=== PATIENT | male | born 1970 | race Caucasian/White ===

== ENCOUNTER 2022-07-10 09:13 | Emergency (ER) | payer BC, MEDICAID, SELFPAY ==
[2022-07-10 09:15] VITALS: BP 190/105; PULSE 84; RESP 18; TEMP 36.4; O2SAT 100; BMI 29.5
--- NOTE | 2022-07-10 09:34 | USCV_ITS ---
NicoletteRanjan munguia Age: 52 Gender: M : 1970 Exam Date: 07/10/2022 09:43 Ordering Phys: Armando Singh DO Technologist: [place] [facility] [place] SWELLING HISTORY: Lower extremity swelling. PROCEDURES: Venous duplex imaging was performed in only the left lower extremity. On the left side, the common femoral, superficial femoral, profunda femoral, popliteal, posterior tibial, greater saphenous veins, and the peroneal trunk were identified and interrogated in the standard fashion. In addition, the posterior tibial and peroneal trunk were evaluated. FINDINGS: DVT FROM CFV TO FALGUNI V. THROMBUS IN CFV IS MOVING IN REAL TIME CONCLUSIONS LLE occlusive thromus left femoral, common femoral, popliteal and peroneal veins. GSV thrombus above the knee. Mobile thrombus seen in the CFV. Notified Dr. Singh at 1255 and at time of study 07/10/22 Ashutosh Dumont MD (Electronically Signed) Final Date: 10 July 2022 12:58 S
--- NOTE | 2022-07-10 09:34 | ED_ITS ---
HPI - Extremity Problem General: Chief complaint: Extremity Problem,Nontraumatic Stated complaint: possible blood clot left leg Time Seen by Provider: 07/10/22 09:15 Source: patient Mode of arrival: ambulatory History of Present Illness: 52-year-old male present emergency room with significant mount of swelling of the last 4 days of the left lower leg begin the ankle and progressively became more proximal. Patient has a history of DVTs. Previous work-up he was told he had some sort of deficiency (? Protein S or C?) And he was started on Coumadin. He has been off of his Coumadin because he lost his insurance and not been able to afford it. He denies any chest pain or shortness of breath. Has no known history of coronary artery disease. No lacerations bumps abrasions or trauma to the left leg recently. MD Complaint: extremity pain Onset (ago): minute(s) Pain Consistency: constant Location: left and lower extremity Quality: aching Radiation: proximal Relieving factors: nothing Exacerbating factors: nothing Associated symptoms: Deny arthralgias, chest pain, fever(s), myalgias, rash or short of breath Review of Systems Const: Denies: fever(s), chills, fatigue or malaise ENMT: Denies: throat pain, ear or mastoid pain, nasal discharge or nasal congestion Card: Denies: chest pain Resp: Denies: dyspnea, productive cough or non-productive cough GI: Denies: abdominal pain, nausea, vomiting, hematemesis, coffee ground emesis, diarrhea, constipation, bloating, hematochezia or melena : Denies: flank pain, dysuria, urinary frequency or urinary urgency Musc: Reports: extremity pain and extremity swelling Skin/Breast: Denies: rash PFSH ED PFSH: Medical History COPD (chronic obstructive pulmonary disease) Hx of blood clots Psoriatic arthritis Surgical History Hx of shoulder surgery Family History Denies family history of Clotting disorder Social History Smoking and tobacco status: current every day smoker Alcohol intake: never Physical Exam Const: COMMON NORMALS: no acute distress GENERAL APPEARANCE: cooperative and comfortable ORIENTATION/CONSCIOUSNESS: Yes awake, Yes oriented to person, Yes oriented to place and Yes oriented to time HENMT: COMMON NORMALS: normocephalic, atraumatic and hearing grossly normal bilaterally HEAD & SCALP: normocephalic and atraumatic Resp: COMMON NORMALS: normal respiratory effort, No retractions, No use of accessory muscles and clear to auscultation bilaterally AUSCULTATION: clear to auscultation bilaterally Cardio: COMMON NORMALS: regular rate, regular rhythm and No murmurs present (Cardio) RATE: regular rate RHYTHM: regular rhythm GI: COMMON NORMALS: Soft to palpation and No hepatosplenomegaly present AUSCULTATION: Yes normoactive bowel sounds PALPATION: Yes Soft to palpation, No Tenderness to palpation present (GI), No Guarding due to palpation present (GI) and Yes No hepatosplenomegaly present Extremity: COMMON NORMALS: normal to inspection, capillary refill normal, no clubbing, cyanosis or edema, no calf tenderness and no pedal edema Neuro: SENSORIUM/ORIENTATION: Yes oriented to person, Yes oriented to place and Yes oriented to time Skin: COMMON NORMALS: no rashes or lesions noted GENERAL SKIN EXAM: no rashes or lesions noted Course Vital Signs: Vital signs: Vital Signs Temperature 97.6 F 07/10/22 09:15 Pulse Rate 79 07/10/22 10:58 Respiratory Rate 18 07/10/22 10:58 Blood Pressure 173/101 07/10/22 10:58 Pulse Oximetry 99 07/10/22 10:58 Oxygen Delivery Me thod 07/10/22 09:15 MDM - Extremity (Nontraumatic) Medical Decision Making Labs and imaging reviewed. Venous duplex shows significant DVT. Patient wants to be treated as an outpatient. I am little bit concerned because the extent of DVT there actually able to visualize a portion of the proximal clot in the femoral vein has a loose aspect to but if he has any chest pain or shortness of breath he needs to return immediately was given Lovenox here started on Eliquis reviewed with him carefully how to take the Eliquis follow-up with his primary care doctor he needs to maintain long-term anticoagulation. Blood pressure was elevated patient states actually better than what it normally is encouraged to follow-up with primary care doctor to reevaluate blood pressure as an outpatient for consideration of initiation of antihypertensive is persistently elevated. Medical Records I reviewed the patient's medical records. Lab Data I reviewed the patient's lab results. 07/10/22 09:47 07/10/22 09:47 Laboratory Results WBC 7.7 10^3/uL (4.0-10.0) 07/10/22 09:47 RBC 5.37 10^6/uL (4.1-5.3) H 07/10/22 09:47 Hgb 15.4 g/dL (11.7-16.6) 07/10/22 09:47 Hct 45.7 % (42.0-52.0) 07/10/22 09:47 MCV 85.1 fl (80-94) 07/10/22 09:47 MCH 28.7 pg (28.0-34.0) 07/10/22 09:47 MCHC 33.7 g/dL (30.0-36.0) 07/10/22 09:47 RDW 12.1 % (12.1-15.1) 07/10/22 09:47 Plt Count 220 10^3/cmm (130-400) 07/10/22 09:47 MPV 9.4 fL (7.4-10.4) 07/10/22 09:47 Neut % (Auto) 57.2 % 07/10/22 09:47 Lymph % (Auto) 26.0 % 07/10/22 09:47 [place] % (Auto) 10.4 % 07/10/22 09:47 Eos % (Auto) 5.4 % 07/10/22 09:47 Baso % (Auto) 0.5 % 07/10/22 09:47 Neut # (Auto) 4.41 10^3/uL (1.8-7.7) 07/10/22 09:47 Lymph # (Auto) 2.0 10^3/uL (0.8-4.8) 07/10/22 09:47 [place] # (Auto) 0.8 10^3/uL (0.2-0.9) 07/10/22 09:47 Eos # (Auto) 0.4 10^3/uL (0.0-0.8) 07/10/22 09:47 Baso # (Auto) 0.0 10^3/uL (0.0-0.1) 07/10/22 09:47 Nucleated RBC % (auto) 0 % 07/10/22 09:47 Nucleated RBCs # 0.0 /100WBC 07/10/22 09:47 PT 13.20 SECONDS (12.1-14.9) 07/10/22 09:47 INR 0.97 (0.8-1.2) 07/10/22 09:47 Sodium 137 mmol/L (136-145) 07/10/22 09:47 Potassium 3.7 mmol/L (3.5-5.1) 07/10/22 09:47 Chloride 101 mmol/L (98-107) 07/10/22 09:47 Carbon Dioxide 25 mmol/L (22-29) 07/10/22 09:47 Anion Gap 14.7 (5-19) 07/10/22 09:47 BUN 8 mg/dL (6-20) 07/10/22 09:47 Creatinine 1.1 mg/dL (0.7-1.2) 07/10/22 09:47 GFR Calculation 70.6 mL/min (90-130) L 07/10/22 09:47 Glucose 148 mg/dL (65-115) H 07/10/22 09:47 Calculated Osmolality 285 mOsm/kg (285-295) 07/10/22 09:47 Calcium 8.9 mg/dL (8.5-10.5) 07/10/22 09:47 Discharge Plan Discharge Patient Disposition: Home Clinical Impression: Deep vein thrombosis of lower extremity Condition: Stable Prescriptions: New Eliquis DVT-PE Treat 30D Start 5 mg (74 tabs) tablets,dose pack See Rx Instructions .ROUTE .COMPLEX Qty: 74 0RF Rx Instructions: orally per package directions No Action albuterol sulfate 90 mcg/actuation HFA aerosol inhaler 2 inh inhalation Q4H Qty: 8.5 3RF Discharge Orders: Discharge ED (Routine); Ordered 07/10/22 Ordered By: Armando Singh Referrals: Gilmar Alejandra, [Primary Care Provider] - Discharge Diet: Usual diet Discharge Activity: Limit activity as instructed Patient Instructions: Deep Vein Thrombosis (ED), Opioid Safety, Pain Management Activity Restrictions/Additional Instructions: You were seen today for leg swelling due to her recurrent DVT (blood clot) in the left lower leg. DVT is quite extensive and is at significant risk for progression to a pulmonary embolism. If you have development of chest pain or sudden shortness of breath return to the emergency room immediately. Start the Eliquis immediately after leaving the emergency room 10 mg twice a day for 7 da ys then 5 mg twice a day follow-up with your primary care doctor to continue on Eliquis or some other appropriate anticoagulant for prevention of further blood clots. Because of your medical history this is especially important. Coding Level of Care Code ED Flight Operations Dispatch Clerk for Marianela Fwd Exam Detailed
--- NOTE | 2022-07-10 09:51 | PC.NURSE ---
pt c/o left leg swelling and tenderness for last 3 days. reports hx DVT in right leg. Had to stop blood thinners around a year ago due to out of insurance. left leg noted to be swollen, red, and warm to touch. US at bedside for doplar. Pt denies dyspnea or chest pain. pt speech clear, speaking in complete sentences without difficulty. lung sounds clear bilat.
[2022-07-10 09:56] LABS: Basophils % 0.5 %; Eosinophils # 0.4 10^3/uL (0.0-0.8); Eosinophils % 5.4 %; Hematocrit 45.7 % (42.0-52.0); Hemoglobin 15.4 g/dL (11.7-16.6); Mean Corpuscular HGB Conc 33.7 g/dL (30.0-36.0); Mean Corpuscular Hemoglobin 28.7 pg (28.0-34.0); Mean Corpuscular Volume 85.1 fl (80-94); Mean Platelet Volume 9.4 fL (7.4-10.4); Monocytes # 0.8 10^3/uL (0.2-0.9); Monocytes % 10.4 %; Neutrophils # 4.41 10^3/uL (1.8-7.7); Neutrophils % 57.2 %; Nucleated Red Blood Cells % 0 %; Platelet Count 220 10^3/cmm (130-400); Red Blood Count 5.37 10^6/uL (4.1-5.3); Red Cell Distribution Width 12.1 % (12.1-15.1); White Blood Count 7.7 10^3/uL (4.0-10.0)
[2022-07-10] MEDS: enoxaparin 100 mg/mL Syringe SUBCUT (10:02)
[2022-07-10 10:15] LABS: Anion Gap 14.7 (5-19); Blood Urea Nitrogen 8 mg/dL (6-20); Calcium 8.9 mg/dL (8.5-10.5); Carbon Dioxide 25 mmol/L (22-29); Chloride 101 mmol/L (98-107); Glomerular Filtration Rate 70.6 mL/min (90-130); Glucose 148 mg/dL (65-115); Osmolality Calculated 285 mOsm/kg (285-295); Potassium 3.7 mmol/L (3.5-5.1); Sodium 137 mmol/L (136-145)
--- NOTE | 2022-07-10 10:18 | PC.PHAR ---
pt states he lost his insurance and hasnt been on his medications states just got insurance back and not restarted taking
[2022-07-10 10:23] VITALS: BP 169/95
[2022-07-10] MEDS: HYDROcodone-acetaminophen 5-325 mg Tablet 2 TAB PO (10:24)
[2022-07-10 10:58] VITALS: BP 173/101; PULSE 79; RESP 18; O2SAT 99
[2022-07-10 11:09] LABS: INR 0.97 (0.8-1.2)
== END 2022-07-10 11:00 | disposition home or self-care (01) ==
PROVIDERS: Emergency Provider Family Medicine; PCP Family Medicine
DX: I82.412 Acute embolism and thrombosis of left femoral vein (principal); J44.9 Chronic obstructive pulmonary disease, unspecified; F17.210 Nicotine dependence, cigarettes, uncomplicated
CPT/HCPCS: 80048; 85025; 85610; 93971; 96372; 99284; J1650

== ENCOUNTER 2022-08-09 09:54 | Emergency (ER) | payer BC, MEDICAID, SELFPAY ==
[2022-08-09] VITALS (12 sets, daily range): BP systolic 147–215; BP diastolic 77–113; PULSE 71–94; RESP 14–23; TEMP 36.3; O2SAT 98–100; BMI 29.5
--- NOTE | 2022-08-09 10:15 | ECG_ITS ---
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 Measurements Intervals Home Rate: 80 P: 36 LA: 136 QRS: 43 QRSD: 85 T: 71 QT: 354 QTc: 410 Interpretive Statements SINUS RHYTHM WITH OCCASIONAL VENTRICULAR PREMATURE COMPLEXES NONSPECIFIC T-WAVE ABNORMALITY No previous ECG available for comparison Electronically Signed On 08-09-2022 23:26:54 FINE ARTS INSTRUCTOR by Chi Rizo M.D. [id number]
--- NOTE | 2022-08-09 10:15 | XR_ITS ---
WS: [id number] Portable AP upright chest, 08/09/2022 Clinical Data: dyspnea/cough Comparison: PA and lateral chest, 08/26/2014. Findings: No nodules, masses or effusions are seen. The heart is normal. The pulmonary vascularity is not increased. No pneumonia or pneumothorax is seen. There are calcified granulomas in both milan in the right lower lobe. The diaphragms are flattened. XR/XR chest 1V portable [id number] Impression: Hyperinflation and old granulomatous disease.
[2022-08-09 10:26] LABS: Basophils % 0.6 %; Eosinophils # 0.2 10^3/uL (0.0-0.8); Eosinophils % 2.5 %; Hematocrit 47.6 % (42.0-52.0); Hemoglobin 16.1 g/dL (11.7-16.6); Lymphocytes # 2.4 10^3/uL (0.8-4.8); Lymphocytes % 33.1 %; Mean Corpuscular HGB Conc 33.8 g/dL (30.0-36.0); Mean Corpuscular Hemoglobin 28.8 pg (28.0-34.0); Mean Platelet Volume 9.7 fL (7.4-10.4); Monocytes # 0.5 10^3/uL (0.2-0.9); Monocytes % 7.4 %; Neutrophils # 4.04 10^3/uL (1.8-7.7); Nucleated Red Blood Cells % 0 %; Platelet Count 258 10^3/cmm (130-400); Red Cell Distribution Width 12.5 % (12.1-15.1); White Blood Count 7.2 10^3/uL (4.0-10.0)
[2022-08-09] MEDS: labetalol 5 mg/mL SDV 20mL 10 MG IVP (10:32)
[2022-08-09] MEDS: hyDRALAzine 20 mg/mL INJ 1 mL IVP (10:32)
[2022-08-09 10:44] LABS: Alanine Aminotransferase 18 U/L (0-41); Albumin Level 4.4 g/dL (3.5-5.2); Alkaline Phosphatase 133 U/L (40-130); Anion Gap 15.5 (5-19); Aspartate Amino Transferase 12 U/L (0-40); Blood Urea Nitrogen 10 mg/dL (6-20); Calcium 9.2 mg/dL (8.5-10.5); Carbon Dioxide 26 mmol/L (22-29); Chloride 99 mmol/L (98-107); Globulin 2.6 g/dL (1.3-4.6); Glomerular Filtration Rate 70.6 mL/min (90-130); Glucose 153 mg/dL (65-115); Osmolality Calculated 286 mOsm/kg (285-295); Potassium 3.5 mmol/L (3.5-5.1); Sodium 137 mmol/L (136-145); Total Bilirubin 0.3 mg/dL (0.15-1.2)
--- NOTE | 2022-08-09 10:56 | W.ED.GENADLT ---
HPI - General Adult General: Chief complaint: General Medical Stated complaint: Left Leg swelling Time Seen by Provider: 08/09/22 10:07 Source: patient Mode of arrival: ambulatory History of Present Illness: 52-year-old male with a known history extensive DVT of his left leg he was seen in the ER here 1 month ago. Previous ultrasound reviewed. Follow-up today is to establish with a primary care doctor he needs a refill of his Eliquis he is swelling is down his pain is little bit better primary care was concerned about his elevated blood pressure and possibility of migration of his DVT and directed him to the emergency room for evaluation. Patient has no chest pain no shortness of breath Onset (ago): month(s) (1) Location: left and lower extremity Severity: moderate Quality: aching Pain Consistency: constant Relieving factors: none Exacerbating factors: none Associated symptoms: Deny chest pain, confusion, cough, diaphoresis, decreased appetite, dyspnea, fevers/chills, headache(s), malaise, nausea, rash, palpitations, seizures, short of breath, syncope, vomiting or weakness Treatments prior to arrival: none Review of Systems Const: Denies: fever(s), chills, malaise or diaphoresis ENMT: Denies: throat pain, ear or mastoid pain, nasal discharge or nasal congestion Card: Denies: chest pain, palpitations or syncope Resp: Denies: dyspnea GI: Denies: abdominal pain, nausea or vomiting : Denies: flank pain, dysuria, urinary frequency or urinary urgency Skin/Breast: Denies: rash Neuro: Denies: headache(s) or confusion PFSH ED PFSH: Medical History (Updated 08/09/22 @ 18:10 by Michele Gleason MD) COPD (chronic obstructive pulmonary disease) Hx of blood clots Psoriatic arthritis Surgical History (Updated 08/09/22 @ 08:38 by Michele Gleason MD) History of back surgery Hx of shoulder surgery Family History Other Lung disease Denies family history of Diabetes CAD (coronary artery disease) Clotting disorder Dementia Hyperlipidemia Psychiatric illness Chronic kidney disease (CKD) Anesthesia complication Bleeding disorder Cancer Hypertension Stroke Social History (Updated 08/09/22 @ 08:34 by Michele Gleason MD) Smoking and tobacco status: current every day smoker cigarettes [ Other cigarette details: current 1/2 PPD, Hx of 50PY] Alcohol intake: never Lives independently: Yes Marital status: Number of children: 8 service: No Current occupational status: disabled Current gender identity: Male Madeline/Pentecostalism: None Special madeline needs: No Agree to transfusion: Yes Physical Exam Const: COMMON NORMALS: no acute distress GENERAL APPEARANCE: cooperative and comfortable ORIENTATION/CONSCIOUSNESS: Yes awake, Yes oriented to person, Yes oriented to place and Yes oriented to time HENMT: COMMON NORMALS: normocephalic and atraumatic HEAD & SCALP: normocephalic and atraumatic Resp: COMMON NORMALS: normal respiratory effort, No retractions, No use of accessory muscles and clear to auscultation bilaterally AUSCULTATION: clear to auscultation bilaterally Cardio: COMMON NORMALS: regular rate, regular rhythm and No murmurs present (Cardio) RATE: regular rate RHYTHM: regular rhythm GI: COMMON NORMALS: Soft to palpation and No hepatosplenomegaly present AUSCULTATION: Yes normoactive bowel sounds PALPATION: Yes Soft to palpation, No Tenderness to palpation present (GI), No Guarding due to palpation present (GI) and Yes No hepatosplenomegaly present Extremity: NARRATIVE EXTREMITY EXAM: Moderate swelling left leg tender to palpation especially medial thigh and the knee Positive Homans no sign of skin breakdown or ulceration Neuro: SENSORIUM/ORIENTATION: Yes oriented to person, Yes oriented to place and Yes oriented to time Skin: COMMON NORMALS: no rashes or lesions noted GENERAL SKIN EXAM: no rashes or lesions noted Course Vital Signs: Vital signs: Vital Signs Temperature 97.4 F L 08/09/22 10:06 Pulse Rate 94 08/09/22 15:00 Respiratory Rate 14 08/09/22 15:00 Blood Pressure 161/93 08/09/22 15:00 Pulse Oximetry 100 08/09/22 15:00 Oxygen Delivery Me thod 08/09/22 10:11 [facility] - General Adult Medical Decision Making Patient had extensive DVT in his initial ultrasound. Swelling and discomfort have lessened slightly his blood pressure here when he first developed arrived was elevated but has moderated since arrival he is currently on losartan and Lasix. Ultrasound shows actually regression of the clot. No clinical evidence of PE. Continue the Eliquis for now no change in his blood pressure medications he may need some adjustment for time but will defer to outpatient clinic. According to his doctor's notes he has a follow-up appointment in 3 days. Medical Records I reviewed the patient's medical records. Lab Data I reviewed the patient's lab results. 08/09/22 10:20 08/09/22 10:20 Radiology Impressions Chest X-Ray 08/09/22 10:15 Impression: Hyperinflation and old granulomatous disease. Laboratory Results WBC 7.2 10^3/uL (4.0-10.0) 08/09/22 10:20 RBC 5.60 10^6/uL (4.1-5.3) H 08/09/22 10:20 Hgb 16.1 g/dL (11.7-16.6) 08/09/22 10:20 Hct 47.6 % (42.0-52.0) 08/09/22 10:20 MCV 85.0 fl (80-94) 08/09/22 10:20 MCH 28.8 pg (28.0-34.0) 08/09/22 10:20 MCHC 33.8 g/dL (30.0-36.0) 08/09/22 10:20 RDW 12.5 % (12.1-15.1) 08/09/22 10:20 Plt Count 258 10^3/cmm (130-400) 08/09/22 10:20 MPV 9.7 fL (7.4-10.4) 08/09/22 10:20 Neut % (Auto) 56.0 % 08/09/22 10:20 Lymph % (Auto) 33.1 % 08/09/22 10:20 [place] % (Auto) 7.4 % 08/09/22 10:20 Eos % (Auto) 2.5 % 08/09/22 10:20 Baso % (Auto) 0.6 % 08/09/22 10:20 Neut # (Auto) 4.04 10^3/uL (1.8-7.7) 08/09/22 10:20 Lymph # (Auto) 2.4 10^3/uL (0.8-4.8) 08/09/22 10:20 [place] # (Auto) 0.5 10^3/uL (0.2-0.9) 08/09/22 10:20 Eos # (Auto) 0.2 10^3/uL (0.0-0.8) 08/09/22 10:20 Baso # (Auto) 0.0 10^3/uL (0.0-0.1) 08/09/22 10:20 Nucleated RBC % (auto) 0 % 08/09/22 10:20 Nucleated RBCs # 0.0 /100WBC 08/09/22 10:20 Sodium 137 mmol/L (136-145) 08/09/22 10:20 Potassium 3.5 mmol/L (3.5-5.1) 08/09/22 10:20 Chloride 99 mmol/L (98-107) 08/09/22 10:20 Carbon Dioxide 26 mmol/L (22-29) 08/09/22 10:20 Anion Gap 15.5 (5-19) 08/09/22 10:20 BUN 10 mg/dL (6-20) 08/09/22 10:20 Creatinine 1.1 mg/dL (0.7-1.2) 08/09/22 10:20 GFR Calculation 70.6 mL/min (90-130) L 08/09/22 10:20 Glucose 153 mg/dL (65-115) H 08/09/22 10:20 Calculated Osmolality 286 mOsm/kg (285-295) 08/09/22 10:20 Calcium 9.2 mg/dL (8.5-10.5) 08/09/22 10:20 Total Bilirubin 0.3 mg/dL (0.15-1.2) 08/09/22 10:20 AST 12 U/L (0-40) 08/09/22 10:20 ALT 18 U/L (0-41) 08/09/22 10:20 Alkaline Phosphatase 133 U/L (40-130) H 08/09/22 10:20 Total Protein 7.0 g/dL (6.6-8.7) 08/09/22 10:20 Albumin 4.4 g/dL (3.5-5.2) 08/09/22 10:20 Globulin 2.6 g/dL (1.3-4.6) 08/09/22 10:20 Discharge Plan Discharge Patient Disposition: Home Clinical Impression: DVT (deep venous thrombosis) Condition: Stable Prescriptions: No Action fluticasone propion-salmeterol [Advair Diskus] 250-50 mcg/dose blister with device 1 inh inhalation BID Qty: 60 0RF atorvastatin 40 mg tablet 40 mg PO DAILY Qty: 90 1RF losartan 50 mg tablet 50 mg PO DAILY Qty: 30 0RF Eliquis 5 mg tablet 5 mg PO BID Qty: 180 3RF furosemide 40 mg tablet 40 mg PO QAM Qty: 10 0RF albuterol sulfate 90 mcg/actuation HFA aerosol inhaler 2 inh inhalation Q4H PRN (Reason: Shortness Of Breath Or Wheezing) Discharge Orders: Discharge ED (Routine); Ordered 08/09/22 Ordered By: Armando Singh Discharge Diet: Usual diet Discharge Activity: Resume usual activity Patient Instructions: Opioid Safety, Pain Management Activity Restrictions/Additional Instructions: You were seen today because of concern of the previous DVT. Ultrasound shows the clot has regressed some of slightly less dilation of the vessel. Recommend that you continue on the Eliquis. It is very likely that he will continue to have swelling and discomfort in the left leg for some time to come due to the extensiveness of the DVT. Coding Level of Care Code ED Prescription Benefit Specialist for Marianela Schneider
[2022-08-09] MEDS: apixaban 5 mg Tablet PO (11:29)
--- NOTE | 2022-08-09 12:40 | USCV_ITS ---
NicoletteRanjan munguia Age: 52 Gender: M : 1970 Exam Date: 08/09/2022 12:52 Ordering Phys: Armando Singh DO Technologist: JULIA Exam Location: [facility] – [place] Indication: lt lower extremity swelling HISTORY: DVT. PROCEDURES: Venous duplex imaging was performed in only the left lower extremity. Comparison:. 07/10/22. FINDINGS: DVT in the left CFV is less extensive. There is still occlusive DVT in the femoral to popliteal vein. Acute DVT profunda vein. CONCLUSIONS Still significant DVT left femoral and popliteal veins, but improved since the prior exam. Dr. Candy Arellano DO (Electronically Signed) Final Date: 09 August 2022 14:37 Amended: 14 August 2022 03:31 C
== END 2022-08-09 15:09 | disposition home or self-care (01) ==
PROVIDERS: Emergency Provider Family Medicine
DX: I82.532 Chronic embolism and thrombosis of left popliteal vein (principal); I82.492 Acute embolism and thrombosis of other specified deep vein of left lower extremity; I82.512 Chronic embolism and thrombosis of left femoral vein; M79.89 Other specified soft tissue disorders
CPT/HCPCS: 71045; 80053; 85025; 93005; 93971; 96374; 96375; 99285; J0360; J3490

== ENCOUNTER 2022-09-19 07:36 | Outpatient (CLI) | payer BC, MEDICAID, SELFPAY ==
--- NOTE | 2022-09-19 07:45 | USCV_ITS ---
Ranjan Shirley Age: 52 Gender: M : 1970 Exam Date: 09/19/2022 07:47 Ordering Phys: Michele Gleason MD Technologist: Mackenzie Metcalf [place] [facility] [place] Indication: Chronic DVT BP: 150 / 95 HR: 86 Rhythm: Sinus Technical Quality: Adequate MEASUREMENTS (Male / Female) Normal Values 2D ECHO LV Diastolic Diameter PLAX 4.3 cm 4.2 - 5.9 / 3.9 - 5.3 cm LV Systolic Diameter PLAX 2.6 cm IVS Diastolic Thickness 1.3 cm 0.6 - 1.0 / 0.6 - 0.9 cm IVS Systolic Thickness 1.8 cm LVPW Diastolic Thickness 1.9 cm 0.6 - 1.0 / 0.6 - 0.9 cm LVPW Systolic Thickness 1.7 cm LVOT Diameter 2.0 cm LV Ejection Fraction 2D Teich 70.6 % LV Ejection Fraction MOD 2C 74.8 % LV Ejection Fraction 2C AL 73.8 % LA Diameter 3.6 cm LA Width 2.8 cm LA Height 3.1 cm RA Width 3.4 cm RA Height 4.4 cm Aorta at Sinotubular Diameter 3.0 cm IVC Diameter 1.4 cm M-MODE Aortic Annulus Diameter 3.3 cm LA Ao Ratio MM 1.3 MV E Point Septal Separation 0.5 cm DOPPLER AV Peak Velocity 170.0 cm/s LVOT Peak Velocity 119.0 cm/s AV Area Cont Eq vti 2.8 cm squared AV Area Cont Eq pk 2.3 cm squared MV Peak Velocity 119.0 cm/s MV Area PHT 3.5 cm squared Mitral E to A Ratio 1.3 MV E' Velocity 52.0 cm/s Mitral E to MV E' Ratio 10.3 Mitral E to LV E' Lateral Ratio 8.3 Mitral E to LV E' Septal Ratio 13.7 TR Peak Velocity 207.3 cm/s TR Peak Gradient 17.2 mmHg TR Mean Velocity 125.4 cm/s TR Mean Gradient 7.3 mmHg TR Velocity Time Integral 40.5 cm TV Peak E Velocity 69.0 cm/s Right Atrial Pressure 3.0 mmHg Pulmonary Artery Systolic Pressu 20.2 mmHg RV Acceleration Time 0.2 s RV Ejection Time 0.3 s RV AcT/ET 0.5 FINDINGS Left Ventricle Normal left ventricular cavity size. Normal left ventricular systolic function. Left ventricular ejection fraction is estimated at 65 %. Normal diastolic function. Right Ventricle The right ventricle is normal in size and function. Right Atrium The right atrium is normal in size. Left Atrium The left atrium is normal in size. Mitral Valve Structurally normal mitral valve without significant stenosis or prolapse. Mild mitral regurgitation. Aortic Valve Structurally normal aortic valve without significant sclerosis or stenosis. There is no aortic regurgitation. Tricuspid Valve Structurally normal tricuspid valve without significant stenosis or regurgitation. Pulmonary artery systolic pressure is normal. Pulmonic Valve Structurally normal pulmonic valve without significant stenosis. There is no pulmonic regurgitation. Pericardium Normal pericardium without effusion. Aorta Normal ascending aorta dimension. IVC The inferior vena cava appears normal. CONCLUSIONS 1-Normal left ventricular cavity size. Normal left ventricular systolic function. Left ventricular ejection fraction is estimated at 65 %. Normal diastolic function. 2-Structurally normal mitral valve without significant stenosis or prolapse. Mild mitral regurgitation. 3-There is no pericardial effusion. 4-Right atrial pressure is around 5 mm of mercury. Jorge Pulliam MD (Electronically Signed) Final Date: 19 September 2022 20:34 S
== END 2022-09-19 07:37 | disposition home or self-care (01) ==
LOC: RAD 07:37
PROVIDERS: PCP Family Medicine; Visit Provider Family Medicine
DX: D68.59 Other primary thrombophilia (principal); I10 Essential (primary) hypertension; Z86.718 Personal history of other venous thrombosis and embolism
CPT/HCPCS: 93306

== ENCOUNTER 2022-10-02 07:00 | Outpatient (CLI) | payer BC, MEDICAID, SELFPAY ==
--- NOTE | 2022-10-02 07:15 | USCV_ITS ---
Ranjan Shirley Age: 52 Gender: M : 1970 Exam Date: 10/02/2022 07:18 Ordering Phys: Dave Barry MD Technologist: Hal Antony Exam Location: [facility] – [place]_ Indication: follow up dvt PROCEDURES: Venous duplex imaging was performed in only the left lower extremity. The following venous structures were evaluated: common femoral vein, profunda vein, proximal portion of the greater saphenous vein, superficial femoral vein, and the popliteal vein. In addition, the posterior tibial and peroneal trunk were evaluated. Serial compression, augmentation maneuvers, and spectral Doppler flow evaluation were performed. FINDINGS: There appears to be thrombus in the LEFT femoral vein extending from prox-dist and partial thrombus remaining in the LEFT peroneal vein. There also appears to be a bakers cyst like area med to left pop. CONCLUSIONS Persistent but improved thrombus LLE. Persistent occlusive thrombus proximal to distal Left femoral vein. Residual partial thrombus Left peroneal vein. Popliteal cyst measuring 3.3x2.2x1.3cm Comparison 08/29 and 07/29 Ashutosh Dumont MD (Electronically Signed) Final Date: 02 October 2022 12:41 S
== END 2022-10-02 07:01 | disposition home or self-care (01) ==
LOC: RAD 07:01
PROVIDERS: PCP Family Medicine; Visit Provider Internal Medicine Medical Oncology
DX: I82.402 Acute embolism and thrombosis of unspecified deep veins of left lower extremity (principal); I82.412 Acute embolism and thrombosis of left femoral vein
CPT/HCPCS: 93971

== ENCOUNTER 2022-10-11 13:54 | Emergency (ER) | payer BC, MEDICAID, SELFPAY ==
[2022-10-11 13:56] VITALS: BP 160/84; PULSE 78; RESP 16; TEMP 36.3; O2SAT 99
--- NOTE | 2022-10-11 14:10 | USCV_ITS ---
Estebanjunior Ranjan Age: 52 Gender: M : 1970 Exam Date: 10/11/2022 14:32 Ordering Phys: Shyam Olivas Technologist: JULIA Exam Location: [facility] [place] Indication: right lower extremity swelling/pain PROCEDURES: Venous duplex imaging was performed in only the right lower extremity. FINDINGS: The veins of the right lower extremity are readily compressible with normal venous flow dynamics including spontaneous flow, respiratory phasic variation and augmentation. Evidence of acute occlusive superficial thrombophlebitis in the right greater saphenous vein with abnormal flow dynamics. CONCLUSIONS No DVT right lower extremity. Below the knee right GSV superficial thrombophlebitis. Dr. Candy Arellano DO (Electronically Signed) Final Date: 11 October 2022 15:30 S
--- NOTE | 2022-10-11 14:12 | W.ED.EXTPRO ---
Documented by User: JACKY Kruger 10/11/22 16:22 HPI - Extremity Problem General: Chief complaint: Extremity Problem,Nontraumatic Stated complaint: Right leg pain and swelling Time Seen by Provider: 10/11/22 14:01 History of Present Illness: Patient is a 52-year-old male who comes to the ED with right leg pain and swelling. Patient has a history of heterozygosity for factor V Leyden mutation. 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 He was initially on Eliquis for blood clots back in July, but blood clots were cleared up. He was then switched to Lovenox and has been taking that. Over the past several days he has noticed his right leg has started swelling and is painful. He says his symptoms in his right leg are just like the symptoms from blood clots in the left leg. Denies any injury or trauma to the right leg. Patient denies any chest pain, shortness of breath or hemoptysis. Denies any other symptoms. Patient is working with Dr. Barry and is trying to get scheduled to see a vascular surgeon in [place] to remove blood clots in the left leg. Associated symptoms: Deny chest pain, fever(s) or rash Review of Systems Const: Denies: fever(s), chills or fatigue Eyes: Denies: change in vision or eye discomfort ENMT: Denies: throat pain, odynophagia, nasal discharge or nasal congestion Card: Denies: chest pain, palpitations, edema, swelling of feet/ankles, dyspnea on exertion or orthopnea Resp: Denies: dyspnea, productive cough or non-productive cough GI: Denies: abdominal pain, nausea, vomiting, diarrhea, constipation or hematochezia : Denies: flank pain, difficulty urinating, dysuria or hematuria Musc: Reports: extremity pain (Right leg) and extremity swelling (Right leg swelling); Denies: neck pain or back pain Skin/Breast: Denies: rash or new lesions Neuro: Denies: headache(s), numbness in extremities or weakness in extremities PFS ED PFSH: Medical History (Updated 10/11/22 @ 16:13 by JACKY Kruger) Chronic back pain COPD (chronic obstructive pulmonary disease) Essential hypertension Heterozygous factor V Leiden mutation Psoriatic arthritis Recurrent deep vein thrombosis Surgical History History of back surgery (05/22/15) Right L4-L5 hemilaminectomy/discectomy/foraminotomy me Hx of shoulder surgery Right shoulder surgery x 4 Family History Other Lung disease Denies family history of Diabetes CAD (coronary artery disease) Clotting disorder Dementia Hyperlipidemia Psychiatric illness Chronic kidney disease (CKD) Anesthesia complication Bleeding disorder Cancer Hypertension Stroke Social History (Updated 09/13/22 @ 09:32 by Aleshia Ni LPN) Smoking and tobacco status: current every day smoker cigarettes [ Other cigarette details: current 1/2 PPD, Hx of 50PY] Alcohol intake: never Lives independently: Yes Marital status: Number of children: 8 service: No Current occupational status: disabled Current gender identity: Male Madeline/Mormonism: None Special madeline needs: No Agree to transfusion: Yes Physical Exam Const: COMMON NORMALS: patient oriented x3 and alert HENMT: COMMON NORMALS: normocephalic HEAD & SCALP: normocephalic MOUTH: Normal oral and palatal mucosa present THROAT: posterior oropharynx normal and uvula midline Neck/C-Spine: COMMON NORMALS: supple GENERAL: Yes normal visual inspection Resp: COMMON NORMALS: normal respiratory effort, No retractions, No use of accessory muscles and clear to auscultation bilaterally AUSCULTATION: clear to auscultation bilaterally Cardio: COMMON NORMALS: regular rate, regular rhythm, S1 normal heart sound present, S2 normal heart sound present, No gallops present (Cardio), No clicks present (Cardio), No murmurs present (Cardio) and Peripheral pulses 2+ throughout RATE: regular rate RHYTHM: regular rhythm HEART SOUNDS: S1 normal heart sound present and S2 normal heart sound present PERIPHERAL PULSES: Peripheral pulses 2+ throughout GI: COMMON NORMALS: Normal to inspection, nondistended, normoactive bowel sounds present, Soft to palpation, non-tender and no masses PALPATION: Yes Soft to palpation : COMMON NORMALS: Yes no CVA tenderness BLADDER/KIDNEY EXAM: Yes no CVA tenderness Back/Pelvis: COMMON NORMALS: no CVA tenderness Extremity: GENERAL: Yes calf tenderness (Right calf tenderness) and Yes edema (2+ pitting edema of the right and left lower legs.) Neuro: COMMON NORMALS: patient oriented x3 SENSORIUM/ORIENTATION: Yes alert GAIT: Yes Normal gait present Skin: GENERAL SKIN EXAM: dry skin Course Vital Signs: Vital signs: Vital Signs Temperature 97.4 F L 10/11/22 13:56 Pulse Rate 78 10/11/22 13:56 Respiratory Rate 18 10/11/22 14:56 Blood Pressure 160/84 10/11/22 13:56 Pulse Oximetry 97 10/11/22 14:56 Oxygen Delivery Me thod 10/11/22 14:56 MDM - Extremity (Nontraumatic) Medical Decision Making Patient is a 52-year-old male who comes to the ED with right leg pain and swelling. Patient has a history of heterozygosity for factor V Leyden mutation. 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 He was initially on Eliquis for blood clots back in July, but blood clots were cleared up. He was then switched to Lovenox and has been taking that. Over the past several days he has noticed his right leg has started swelling and is painful. He says his symptoms in his right leg are just like the symptoms from blood clots in the left leg. Denies any injury or trauma to the right leg. Patient denies any chest pain, shortness of breath or hemoptysis. Denies any other symptoms. Patient is working with Dr. Barry and is trying to get scheduled to see a vascular surgeon in [place] to remove blood clots in the left leg. Vitals are stable. Patient appears nontoxic in no acute distress or pain. He is 2+ pitting edema in right and left lower extremities and has right calf tenderness. Ultrasound venous duplex of right lower extremity showed no DVTs, but it did show a right greater saphenous vein superficial thrombophlebitis. Patient was stable for discharge home and diagnosed with superficial venous thrombosis of right leg. He was told to try warm compresses elevate leg and use compression stockings to help with symptoms. He was told to continue taking his previously prescribed Lovenox and to follow-up with Dr. Barry and Dr. Gleason in the next couple days to try to get vascular surgery set up in [place] to remove chronic left leg DVTs. Strict return to ED precautions given. Patient understood and agreed with plan. Imaging Data US Vascular: I personally reviewed and interpreted this imaging study as follows: Radiologist's impression: [employer] [place] [address] Ultrasound Report Signed Patient: Ranjan Shirley Unit #: [id number] : 1970 Age/Sex: 52 / M ADM Date: 10/11/22 Loc: ER Room/Bed: Attending Dr: Ordering Provider/Ordering MD: Shyam Olivas Date of Service: 10/11/22 Procedure(s): [place] [address] Accession Number(s): [id number] Report Number: [id number] ?Ranjan Shirley ?Age:? ? 52 ? ? Gender: ? ? M ?:? ? 1970 ?Exam Date: ? ? 10/11/2022 14:32 ?Ordering Phys: ? ? Shyam Olivas? JACKY ?Technologist:? ? ? [place] ?[place]? ? ? [facility] [place]N:? ? [id number] ?Account Number: ? ? ? [id number] ?Indication:? ? ? right lower extremity swelling/pain ?PROCEDURES: ?Venous duplex imaging was performed in only the right lower ?extremity. ?FINDINGS: ?The veins of the right lower extremity are readily compressible ?with normal venous flow dynamics including spontaneous flow, ?respiratory phasic variation and augmentation. ?Evidence of acute occlusive superficial thrombophlebitis in the ?right greater saphenous vein with abnormal flow dynamics. ?CONCLUSIONS ?No DVT right lower extremity. ?Below the knee right GSV superficial thrombophlebitis. ?Dr. Candy Arellano DO ?(Electronically Signed) ?Final Date:? ? ? 11 October 2022 ? 15:30 S Discharge Plan Discharge Patient Disposition: Home Clinical Impression: Acute superficial venous thrombosis of right lower extremity Condition: Stable Prescriptions: No Action fluticasone propion-salmeterol [Advair Diskus] 250-50 mcg/dose blister with device 1 inh inhalation BID Qty: 60 0RF atorvastatin 40 mg tablet 40 mg PO DAILY Qty: 90 1RF enoxaparin [Lovenox] 100 mg/mL syringe 100 mg SUBCUT Q12H Qty: 60 0RF losartan 100 mg tablet 100 mg PO DAILY Qty: 90 1RF torsemide 20 mg tablet 40 mg PO DAILY Qty: 60 0RF potassium chloride 20 mEq tablet extended release 20 meq PO DAILY Qty: 30 0RF hydrocodone-acetaminophen 7.5-325 mg tablet 1 tab PO BID PRN (Reason: pain) 15 Days Qty: 30 0RF albuterol sulfate 90 mcg/actuation HFA aerosol inhaler 2 inh inhalation Q4H PRN (Reason: Shortness Of Breath Or Wheezing) amlodipine 10 mg tablet 10 mg PO QPM Zantac-360 (famotidine) 20 mg Tablet 20 mg PO DAILY PRN (Reason: Acid Reflux) Discharge Orders: Discharge ED (Routine); Ordered 10/11/22 Ordered By: Shyam Olivas Referrals: Michele Gleason MD [Primary Care Provider] - Discharge Diet: Regular Discharge Activity: Increase activity as tolerated Patient Instructions: Superficial Thrombophlebitis (ED) Activity Restrictions/Additional Instructions: Follow-up with Dr. Barry and Dr. Gleason within the next couple days and try to get surgery on left leg DVTs rescheduled. Continue taking medications as prescribed. Use warm compresses and Dell wrap right leg to help with swelling and superficial clots. Return to the ER or your medical provider if condition worsens. Please read and understand discharge instructions. Thank you for choosing [facility] for your healthcare needs today. Please realize this is an emergency room and that we are providing you with a medical screening exam and this may not be complete and all inclusive of all the testing and or work up that you may need to determine your ailment or severity of your illness. It is very important that you follow up as instructed or that you return to the Emergency Department should you have concerns or if your condition changes or worsens in any way. Coding Level of Care Code ED Dental Floss Packer for Chg Fwd Documented by User: Armando Singh DO 10/11/22 17:04 HPI - Extremity Problem General: Chief complaint: Extremity Problem,Nontraumatic Stated complaint: Right leg pain and swelling Time Seen by Provider: 10/11/22 14:01 PFS ED PFSH: Medical History (Updated 10/11/22 @ 16:13 by JACKY Kruger) Chronic back pain COPD (chronic obstructive pulmonary disease) Essential hypertension Heterozygous factor V Leiden mutation Psoriatic arthritis Recurrent deep vein thrombosis Surgical History History of back surgery (05/22/15) Right L4-L5 hemilaminectomy/discectomy/foraminotomy me Hx of shoulder surgery Right shoulder surgery x 4 Family History Other Lung disease Denies family history of Diabetes CAD (coronary artery disease) Clotting disorder Dementia Hyperlipidemia Psychiatric illness Chronic kidney disease (CKD) Anesthesia complication Bleeding disorder Cancer Hypertension Stroke Social History (Updated 09/13/22 @ 09:32 by Aleshia iN LPN) Smoking and tobacco status: current every day smoker cigarettes [ Other cigarette details: current 1/2 PPD, Hx of 50PY] Alcohol intake: never Lives independently: Yes Marital status: Number of children: 8 service: No Current occupational status: disabled Current gender identity: Male Madeline/Mormonism: None Special madeline needs: No Agree to transfusion: Yes Course Vital Signs: Vital signs: Vital Signs Temperature 97.4 F L 10/11/22 13:56 Pulse Rate 78 10/11/22 13:56 Respiratory Rate 18 10/11/22 14:56 Blood Pressure 160/84 10/11/22 13:56 Pulse Oximetry 97 10/11/22 14:56 Oxygen Delivery Me thod 10/11/22 14:56 MDM - Extremity (Nontraumatic) Medical Decision Making Patient is a 52-year-old male who comes to the ED with right leg pain and swelling. Patient has a history of heterozygosity for factor V Leyden mutation. 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 He was initially on Eliquis for blood clots back in July, but blood clots were cleared up. He was then switched to Lovenox and has been taking that. Over the past several days he has noticed his right leg has started swelling and is painful. He says his symptoms in his right leg are just like the symptoms from blood clots in the left leg. Denies any injury or trauma to the right leg. Patient denies any chest pain, shortness of breath or hemoptysis. Denies any other symptoms. Patient is working with Dr. Barry and is trying to get scheduled to see a vascular surgeon in [place] to remove blood clots in the left leg. Vitals are stable. Patient appears nontoxic in no acute distress or pain. He is 2+ pitting edema in right and left lower extremities and has right calf tenderness. Ultrasound venous duplex of right lower extremity showed no DVTs, but it did show a right greater saphenous vein superficial thrombophlebitis. Patient was stable for discharge home and diagnosed with superficial venous thrombosis of right leg. He was told to try warm compresses elevate leg and use compression stockings to help with symptoms. He was told to continue taking his previously prescribed Lovenox and to follow-up with Dr. Barry and Dr. Gleason in the next couple days to try to get vascular surgery set up in [place] to remove chronic left leg DVTs. Strict return to ED precautions given. Patient understood and agreed with plan. Chart reviewed and patient discussed with midlevel. Agree with assessment and plan. Medical Records I reviewed the patient's medical records. Lab Data I reviewed the patient's lab results. Discharge Plan Discharge Patient Disposition: Home Clinical Impression: Acute superficial venous thrombosis of right lower extremity Condition: Stable Prescriptions: No Action fluticasone propion-salmeterol [Advair Diskus] 250-50 mcg/dose blister with device 1 inh inhalation BID Qty: 60 0RF atorvastatin 40 mg tablet 40 mg PO DAILY Qty: 90 1RF enoxaparin [Lovenox] 100 mg/mL syringe 100 mg SUBCUT Q12H Qty: 60 0RF losartan 100 mg tablet 100 mg PO DAILY Qty: 90 1RF torsemide 20 mg tablet 40 mg PO DAILY Qty: 60 0RF potassium chloride 20 mEq tablet extended release 20 meq PO DAILY Qty: 30 0RF hydrocodone-acetaminophen 7.5-325 mg tablet 1 tab PO BID PRN (Reason: pain) 15 Days Qty: 30 0RF albuterol sulfate 90 mcg/actuation HFA aerosol inhaler 2 inh inhalation Q4H PRN (Reason: Shortness Of Breath Or Wheezing) amlodipine 10 mg tablet 10 mg PO QPM Zantac-360 (famotidine) 20 mg Tablet 20 mg PO DAILY PRN (Reason: Acid Reflux) Discharge Orders: Discharge ED (Routine); Ordered 10/11/22 Ordered By: Shyam Olivas Referrals: Michele Gleason MD [Primary Care Provider] - Discharge Diet: Regular Discharge Activity: Increase activity as tolerated Patient Instructions: Superficial Thrombophlebitis (ED) Activity Restrictions/Additional Instructions: Follow-up with Dr. Barry and Dr. Gleason within the next couple days and try to get surgery on left leg DVTs rescheduled. Continue taking medications as prescribed. Use warm compresses and Dell wrap right leg to help with swelling and superficial clots. Return to the ER or your medical provider if condition worsens. Please read and understand discharge instructions. Thank you for choosing [facility] for your healthcare needs today. Please realize this is an emergency room and that we are providing you with a medical screening exam and this may not be complete and all inclusive of all the testing and or work up that you may need to determine your ailment or severity of your illness. It is very important that you follow up as instructed or that you return to the Emergency Department should you have concerns or if your condition changes or worsens in any way. Coding Level of Care Code ED Dental Floss Packer for Marianela Schneider
[2022-10-11 14:56] VITALS: RESP 18; O2SAT 97
== END 2022-10-11 16:21 | disposition home or self-care (01) ==
PROVIDERS: Emergency Provider Physician Assistant; PCP Family Medicine
DX: I82.811 Embolism and thrombosis of superficial veins of right lower extremity (principal); J44.9 Chronic obstructive pulmonary disease, unspecified; I10 Essential (primary) hypertension; F17.210 Nicotine dependence, cigarettes, uncomplicated
CPT/HCPCS: 93971; 99284

== ENCOUNTER 2022-12-09 20:18 | Emergency (ER) | payer BC, MEDICAID, SELFPAY ==
[2022-12-09 20:32] VITALS: BP 154/85; PULSE 91; RESP 14; TEMP 36.6; O2SAT 97; BMI 28.8
--- NOTE | 2022-12-09 21:52 | W.ED.EXTPRO ---
HPI - Extremity Problem General: Chief complaint: Extremity Injury, Lower Stated complaint: swollen legs Time Seen by Provider: 12/09/22 21:48 History of Present Illness: 52-year-old male patient comes in today with complaints of left lower leg pain. Patient has a history of chronic DVTs in bilateral lower extremities. Patient is scheduled to see a vascular specialist at the end of December for consult regarding his DVTs. Patient denies any chest pain or shortness of breath at this time. Patient appears nontoxic. Patient is here mainly for control of his pain in the leg. Patient appears nontoxic. Patient appears in mild to moderate pain. Associated symptoms: Deny fever(s) Review of Systems Const: Denies: fever(s) Musc: Reports: extremity pain PFSH ED PFSH: Medical History Chronic back pain COPD (chronic obstructive pulmonary disease) Essential hypertension Heterozygous factor V Leiden mutation Psoriatic arthritis Recurrent deep vein thrombosis Surgical History History of back surgery (05/22/15) Right L4-L5 hemilaminectomy/discectomy/foraminotomy me Hx of shoulder surgery Right shoulder surgery x 4 Family History Other Lung disease Denies family history of Diabetes CAD (coronary artery disease) Clotting disorder Dementia Hyperlipidemia Psychiatric illness Chronic kidney disease (CKD) Anesthesia complication Bleeding disorder Cancer Hypertension Stroke Social History (Updated 10/17/22 @ 11:27 by Aleshia Ni LPN) Smoking and tobacco status: current every day smoker cigarettes [ Other cigarette details: current 1/2 PPD, Hx of 50PY] Alcohol intake: never Substance/Drug Use: never Lives independently: Yes Marital status: Number of children: 8 service: No Current occupational status: disabled Current gender identity: Male Madeline/Latter-Day: None Special madeline needs: No Agree to transfusion: Yes Physical Exam Const: COMMON NORMALS: alert HENMT: COMMON NORMALS: normocephalic HEAD & SCALP: normocephalic Resp: COMMON NORMALS: normal respiratory effort Cardio: COMMON NORMALS: regular rate RATE: regular rate Extremity: LEFT LOWER EXTREMITY: Yes lower leg (Distal swelling and mild redness) Left lower leg: Yes inspection, Yes palpation and Yes neurovascular exam Neuro: SENSORIUM/ORIENTATION: Yes alert Skin: COMMON NORMALS: turgor normal GENERAL SKIN EXAM: turgor normal Course Vital Signs: Vital signs: Vital Signs Temperature 97.9 F 12/09/22 20:32 Pulse Rate 91 12/09/22 20:32 Respiratory Rate 14 12/09/22 20:32 Blood Pressure 154/85 12/09/22 20:32 Pulse Oximetry 97 12/09/22 20:32 Oxygen Delivery Me thod Room Air 12/09/22 20:32 MDM - Extremity (Nontraumatic) Medical Decision Making 52-year-old male patient comes in for complaints of pain to the lower legs. Patient bilateral lower extremities are slightly swollen with mild redness bilaterally. Patient does have a history of DVTs. Differential diagnosis includes peripheral vascular disease, chronic DVT, musculoskeletal pain. Patient is here for pain control. Patient denies any new injury or changes in his symptoms. Patient just reports that his pain is become more unbearable and is looking for some relief. Patient was written for 10 tablets of hydrocodone recommended to follow-up with his primary care for pain management referral. Patient stated understanding and agreed to plan. Discharge Plan Discharge Patient Disposition: Home Clinical Impression: Chronic pain of left lower extremity Deep vein thrombosis of left lower extremity Qualifiers: Affected thrombotic vein of extremity: unspecified vein of extremity Chronicity: chronic Qualified Code(s): I82.502 - Chronic embolism and thrombosis of unspecified deep veins of left lower extremity Condition: Stable Prescriptions: New hydrocodone-acetaminophen 10-325 mg tablet 1 tab PO Q8H PRN (Reason: pain (scale score 7-10)) Qty: 10 0RF No Action fluticasone propion-salmeterol [Advair Diskus] 250-50 mcg/dose blister with device 1 inh inhalation BID Qty: 60 0RF atorvastatin 40 mg tablet 40 mg PO DAILY Qty: 90 1RF losartan 100 mg tablet 100 mg PO DAILY Qty: 90 1RF torsemide 20 mg tablet 40 mg PO DAILY Qty: 60 0RF potassium chloride 20 mEq tablet extended release 20 meq PO DAILY Qty: 30 0RF enoxaparin [Lovenox] 100 mg/mL syringe 100 mg SUBCUT Q12H Qty: 60 0RF albuterol sulfate 90 mcg/actuation HFA aerosol inhaler 2 inh inhalation Q4H PRN (Reason: Shortness Of Breath Or Wheezing) amlodipine 10 mg tablet 10 mg PO QPM Zantac-360 (famotidine) 20 mg Tablet 20 mg PO DAILY PRN (Reason: Acid Reflux) Discharge Orders: Discharge ED (Routine); Ordered 12/09/22 Ordered By: Og Lloyd Referrals: Michele Gleason MD [Primary Care Provider] - Discharge Diet: Usual diet Discharge Activity: Increase activity as tolerated Patient Instructions: Opioid Safety, Pain Management Activity Restrictions/Additional Instructions: Continue with routine medication. Keep appointment with specialist regarding DVT in the legs bilaterally. Follow-up with primary care. Return to ED for worsening symptoms such as increased shortness of breath and severe chest pain. Coding Level of Care Code ED Branch Lending Officer for Marianela Schneider
[2022-12-09] MEDS: HYDROcodone-acetaminophen 10-325 mg Tablet 1 TAB PO (22:12)
[2022-12-09 22:22] VITALS: BP 175/101; PULSE 80; RESP 18; O2SAT 98
== END 2022-12-09 22:23 | disposition home or self-care (01) ==
PROVIDERS: Emergency Provider Nurse Practitioner Family; PCP Family Medicine
DX: M79.662 Pain in left lower leg (principal); G89.29 Other chronic pain; Z86.718 Personal history of other venous thrombosis and embolism; Z79.01 Long term (current) use of anticoagulants
CPT/HCPCS: 99283